=== PATIENT | male | born 1945 | race Caucasian/White ===

== ENCOUNTER 2017-05-13 10:40 | Inpatient (IN) | payer MEDICARE ==
[~2017-05-13] VITALS: Ht 182.9 cm; Wt 77.3 kg
[~2017-05-13 10:40] MED LIST: ALBU2.5V36 INH; ALBU2.5V36 NEB; ASPI81TA94 PO; ATOR40TA69 PO; AZIT500V18 IV; CEFT1VIA65 IV; COM14R INH; DOXY-179 PO; ENOX40DI8 SC; FURO40TA35 PO; INSU100V24 SUBQ; IPRA3AMP21 NEB; METH125V13 IVP; METO25TA93 PO
[2017-05-13] MEDS ORDERED: ALBUTEROL 2.5 MG/3 ML NEB NEB PRN (10:55)
[2017-05-13] MEDS ORDERED: MAGNESIUM HYDROXIDE* 30ML UDCP FT PRN (10:55)
[2017-05-13] MEDS ORDERED: BISACODYL 10 MG SUPP PR PRN (10:55)
[2017-05-13] MEDS ORDERED: INSULIN HUM LISPRO 100 UN/ML 3 ML VIAL SUBQ PRN (10:55)
--- NOTE | 2017-05-13 11:28 | Consultant Pharmacy Review ---
Asphalt Patcher Review Medication Review Do All Mecications have a Diag: No (SHOWS UNKNOWN GI PROBLEMS - CURRENTLY ON PROTONIX WITH NO DIAG.) Beers Criteria Medication 2014 Proton Pump Inhibitors: Pantoprazole (NO DIAGNOSIS AVAILABLE - CONSIDER STOPPING UPON DISCHARGE) Other General Cautions MILK OF MAG CAN DECREASE ABSORPTION OF PREDNISONE. GIVE ADEQUATE SPACING OF THESE MEDICATIONS TO AVOID THIS EFFECT. PREDNISONE CAN ALTER BLOOD GLUCOSE - MONITOR CLOSELY WHILE TAKING CORTICOSTEROIDS. Lexicomp Interaction Analysis A = No known interaction C = Monitor therapy X = Avoid combination B = No action needed D = Consider therapy modification Drugs in this analysis: Albuterol; Bisacodyl; HumaLOG; Lovenox; Milk of Magnesia [OTC]; PredniSONE; Protonix * Drug-Drug Interactions D Bisacodyl Milk of Magnesia [OTC] (Antacids) D Milk of Magnesia [OTC] (Antacids) PredniSONE (Corticosteroids (Oral)) C HumaLOG (Antidiabetic Agents) PredniSONE (Hyperglycemia-Associated Agents) B Albuterol (Beta2-Agonists) PredniSONE (Corticosteroids) Pneumococcal Vaccine HX Pneumo Vac ([id number]): No (unsure ) HX Pneumo Vac (Pneumovax): No (unsure ) Notified? Notified?: No BROOKE WILSON May 13, 2017 11:28
[2017-05-13 11:33] VITALS: Ht 182.9 cm; Wt 77.3 kg
[2017-05-13 11:56] VITALS: BP 140/83
--- NOTE | 2017-05-13 14:09 | Medical Nutrition Therapy ---
Nutrition Anthropometrics Height (Inches): 72.00 Height (Calculated Centimeters: 182.520901 Weight (Pounds): 170 Weight (Calculated Kilograms): 77.338 BMI Calculated: 24.68 Mario Alberto Nutrition Score: Mario Alberto Nutrition Risk Score: Dietary Referral Nutrition Risk Factors: Unplanned Loss >10lbs Nutrition Risk Comment: Physical Findings Physical Appearance: WNL Skin Appearance Skin Appearance: Edema Edema Location Modifier: Both Edema Location: Ankle Type of Edema: Degree of Edema: Gastrointestinal Symptoms GI Symtoms: Appetite Changes Tube Present: Bowel Sounds: Recent Bowel Pattern: Stool Characteristics: Nutrition/Food History Decreased Appetite Fair Nutritional Diagnosis Nutritional Risk Acuity 3: COPD Unstable Past Medical History: COPD, type 2 diabetes, CAD, severe aortic stenosis, polycythemia Nutritional Acuity: 3-Mild Nutrition Diagnosis: Inadequate Food Intake Nutrition Etiology: Physiological Causes Nutrition Problem/Etiology/Sym: Inadequate Oral Intake related to lack of teeth/dentures AEB reports of weight loss and insufficient intake of from diet when compared to requirements Energy Requirement: 2340 ([place]-St Jeor: Actual BW X 1.5) Protein Requirement: 77 (Actual BW Kg X 1.0) Fluid Requirement: 2340 Diet Type: Dysphagia Stage 3 Nutrition Intervention: Cont diet as ordered Additional Diet Restrictions: PT HAS NO TEETH.- PROVIDE SOFT, [id number] Diet Comment To RSA: PUT PROTEIN POWDER IN APPROPRIATE FOODS, OFFER NUTR SUPPLMENT Nutrition Monitoring & Eval RD Patient Assessment Time: [address] Assessment Type: RD Assessment Patient Nutrition Acuity: 3-Mild Follow Up Date: May 16, 2017 Nutritional Comment: Pt originally admitted 05/04/17 for respiratory failure and intubated in ICU. Pt extubated 05/11/17 and transferred to [facility] 05/13/17. ST eval indicated no dysphagia, however pt without or teeth/dentures. Receiving Dsyphagia 3 (soft, moist, easy to chew/swallow foods). Alb 2.8, BNP 635, Glu 85. SSI Lispro. Will monitor and encourage intake. STEVE STEVENS May 13, 2017 14:09
[2017-05-13 16:45] VITALS: BP 160/93
[2017-05-14 08:10] VITALS: BP 178/101
[2017-05-14 08:24] VITALS: BP 130/76
[2017-05-14] MEDS: predniSONE 20 MG TAB PO SCH (08:38)
[2017-05-14] MEDS: PANTOPRAZOLE SOD 40 MG TABEC PO SCH (08:38)
[2017-05-14] MEDS: ENOXAPARIN 40 MG/0.4ML SYR SC SCH (08:39)
[2017-05-14 16:45] VITALS: BP 183/92
[2017-05-15 07:40] VITALS: BP 140/80
[2017-05-15] MEDS: predniSONE 20 MG TAB PO SCH (08:41)
[2017-05-15] MEDS: PANTOPRAZOLE SOD 40 MG TABEC PO SCH (08:41)
[2017-05-15] MEDS: ENOXAPARIN 40 MG/0.4ML SYR SC SCH (08:42)
[2017-05-15 16:10] VITALS: BP 119/66
--- NOTE | 2017-05-15 16:41 | PT ECF NOTE ---
Type of Note: Initial Note Primary Medical Diagnosis: s/p pneumonia with acute respiratory failure and intubation; COPD, severe aortic stenosis, EF of 55% Physical Therapy Evaluation Date: 05/13/17 SUBJECTIVE: Prior Hospitalization: 05/04/17 - 05/13/17 Prior Level of Function: Pt was indep with all personal and community mobility. 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 Home Accessibility: One large step onto pickup tailgate to access [facility]. Equipment Owned: None Medical Complications/Past Medical History: Pt previously hospitalized for aortic stenosis and transferred to [place] for follow up, however, pt left [place] , stating that he would follow up with his primary care physician in [facility]. Psychosocial Support: Unknown, pt reports friends that assist. Pain Scale (0-10): None reported at time of eval OBJECTIVE: Strength: B) LE's 4-/5 overall; pt fatigues easily ROM: (please note any abnormalities) No limitations present Sensation: (please note any abnormalities) Denies paresthesias Other Neuro findings: Confusion and unclear thinking at times, as well as poor safety awareness skills and difficulty following instructions. Bed Mobility: Not observed at eval; Pt was modified indep with this on Medical unit Assistive device: Bed rail Transfers: Minimum assistance, Verbal cues, SBA, CGA Assistive Device: Front wheeled walker, Gait belt Gait: Verbal cues, SBA, CGA Assistive device: Front wheeled walker Stairs: Not yet attempted Assistive device: Timed Up and Go (>12 seconds indicated increased risk for falls): Not evaluated at time of eval, as pt is not following serial instructions, but does adequately with [id number] cues. 10 meter walk test (0.6m/second cannot function independently): n/a Other Objective Measures: n/a ASSESSMENT: Pt demos generalized weakness and difficulty with motor planning, as well as decreased safety awareness with basic ADL's, following prolonged intubation. Due to pt's living arrangements, pt will need to be highly indep with only a SPC or no assistive device. Pt will also need to be able to safely complete a high step up onto tailgate of pickup to access his camper, as he currently does not have portable steps for this. Problem List/Current Limitations: Decreased activity willam, Decreased strength , Decreased coordination, Decreased balance, Generalized weakness, Poor safety awareness, Decreased problem solving Short Term Goals: 1. Pt to be able to ambulate 200' with least restrictive device and no loss of balance with Modified indep 2. Pt to to up/down 4 steps with single rail and modified indep. 3. Pt to willam large step up onto adjustable mat table with CGA/SBA and rail for leverage to simulate entry to camper. Equine Pharmacology Technician Goals: Pt to discharge to least restrictive environment with adequate safety Patient Goals: Return to his prior living arrangement Rehabilitation Prognosis: Good/Fair Barriers for Discharge: Pt resides alone is a fairly challenging setting with a large step into pickup to access his camper. PLAN: The patient will benefit from skilled physical therapy services 5 times per week for 2 weeks including: Therapeutic Activities Transfer Training, Gait Training, Stair Training, ADL's, Safety Training, Bed Mobility Thank you for this referral. If you have any questions, concerns, or comments about this report or plan, please contact me at . h. Radha Alberto, PT, MPT MTDD
[2017-05-16 07:50] VITALS: BP 169/78
[2017-05-16] MEDS: ENOXAPARIN 40 MG/0.4ML SYR SC SCH (08:43)
[2017-05-16] MEDS: PANTOPRAZOLE SOD 40 MG TABEC PO SCH (08:43)
[2017-05-16] MEDS: predniSONE 20 MG TAB PO SCH (08:43)
--- NOTE | 2017-05-16 14:34 | Medical Nutrition Therapy ---
Nutrition Anthropometrics Height (Inches): 72.00 Height (Calculated Centimeters: 182.020155 Weight (Pounds): 170 Weight (Calculated Kilograms): 77.338 BMI Calculated: 24.68 Mario Alberto Nutrition Score: Adequate Mario Alberto Nutrition Risk Score: 17 Dietary Referral Nutrition Risk Factors: Unplanned Loss >10lbs Nutrition Risk Comment: Physical Findings Physical Appearance: WNL Skin Appearance Skin Appearance: Edema Edema Location Modifier: Both Edema Location: Ankle Type of Edema: Degree of Edema: 2+ Gastrointestinal Symptoms GI Symtoms: Appetite Changes Tube Present: Bowel Sounds: Recent Bowel Pattern: Stool Characteristics: Nutritional Diagnosis Nutritional Risk Acuity 3: COPD Unstable Past Medical History: COPD, type 2 diabetes, CAD, severe aortic stenosis, polycythemia Nutritional Acuity: 3-Mild Nutrition Diagnosis: Inadequate Food Intake Nutrition Etiology: Physiological Causes Nutrition Problem/Etiology/Sym: Inadequate Oral Intake related to lack of teeth/dentures AEB reports of weight loss and insufficient intake of from diet when compared to requirements Energy Requirement: 2340 ([place]-St Jeor: Actual BW X 1.5) Protein Requirement: 77 (Actual BW Kg X 1.0) Fluid Requirement: 2340 Diet Type: Dysphagia Stage 3 Nutrition Intervention: Cont diet as ordered Food Likes: lana ensure Additional Diet Restrictions: PT HAS NO TEETH.- PROVIDE SOFT, [id number] Diet Comment To RSA: PUT PROTEIN POWDER IN APPROPRIATE FOODS, OFFER NUTR SUPPLMENT Nutrition Monitoring & Eval Nutrition Goals: Eat 75-100% Meal RD Patient Assessment Time: [address] Assessment Type: RD Re-Assessment Patient Nutrition Acuity: 3-Mild Follow Up Date: May 16, 2017 Nutritional Comment: Pt originally admitted 05/04/17 for respiratory failure and intubated in ICU. Pt extubated 05/11/17 and transferred to [facility] 05/13/17. ST eval indicated no dysphagia, however pt without or teeth/dentures. Receiving Dsyphagia 3 (soft, moist, easy to chew/swallow foods). Alb 2.8, BNP 635, Glu 85. SSI Lispro. Will monitor and encourage intake. 05/16 Glu 109. Pt consuming 100% of Dsyphagia 3 diet. Monitor labs, intake, etc. STEVE STEVENS May 16, 2017 14:34
--- NOTE | 2017-05-16 15:38 | OT ECF NOTE ---
Type of Note: Initial Note Primary Medical Diagnosis: s/p pneumonia with acute respiratory failure and intubation; COPD, severe aortic stenosis, EF of 55% Occupational Therapy Evaluation Date: 05/16/17 SUBJECTIVE: Prior Hospitalization: H 05/04/17 thru 05/13/17 Prior Level of Function: Independent with all ADLs/IADLs Prior Living Status: Alone, Pt resides in a camper in the bed of his truck. Utilizes truck stops for bathing. Community Services: No known needs Home Accessibility: One step into home Equipment Owned: None Medical Complications/Past Medical History: Pt previously hospitalized for aortic stenosis and transferred to [place] for follow up, however, pt left [place] , stating that he would follow up with his primary care physician in [facility]. Psychosocial Support: Unknown, pt reports friends that assist as needed Pain Scale (0-10): None reported at time of evaluation. OBJECTIVE: Strength: MMT: Right Left Shoulder Flexion WFL WFL Elbow Flexion WFL WFL Wrist Extension WFL WFL Store Loss Prevention Manager WFL WFL (5= normal, 4= good, 3= fair, 2= poor, 1= trace) ROM: Both upper extremities, WFL Sensation: Intact, No concerns Functional Transfer: Assistive Device: Rolling walker Transfer Ability: Independent/SBA with v/c's due to decreased safety awareness. Education for use of w/c brakes. ADL: Upper body dressing: Assistive device: Upper body dressing ability: Independent Lower body dressing: Assistive device: Seated Lower body dressing ability: Independent Toileting: Assistive device: Toilet seat with grab bars Toileting ability: Modified Ind/AE Grooming/hygiene: Assistive device: Grooming ability: N/T Bathing: Assistive device: Bathing ability: N/T Standardized Assessment: James Index of Activities of Daily Livin/20 at initial evaluation. Pt able to complete ADLs (I)ly/SBA but presents with fatigue and decreased strength. ASSESSMENT: Vasile presents to [facility] with decreased activity tolerance for engagement in ADLs. He will benefit from skilled OT services to ensure safety and strength for optimize ADL engagement. Problem List/Current Limitations: Generalized weakness Short Term Goals: 1. Pt will be provided with UB HEP. 2. Pt will have knowledge of appropriate AE. Visual Lead Goals: Return to prior living status. Patient Goals: Pt reports desire to discharge home at current level of function with no concerns. Rehabilitation Prognosis: Good Barriers to Discharge: Discharge arrangements PLAN: The patient will benefit from skilled occupational therapy services 5 times per week for 2 weeks including: Thank you for this referral. If you have any questions, concerns, or comments about this report or plan, please contact me at . Shruti Lomeli MS, OTR/L Occupational Therapist CHARLENE
[2017-05-16 18:20] VITALS: BP 155/78
[2017-05-17 08:00] VITALS: BP 147/78
--- NOTE | 2017-05-17 08:39 | Medical Nutrition Therapy ---
Nutrition Monitoring & Eval RD Patient Assessment Time: [address] Assessment Type: RD Re-Assessment Patient Nutrition Acuity: 3-Mild Follow Up Date: May 23, 2017 Nutritional Comment: Pt originally admitted 05/04/17 for respiratory failure and intubated in ICU. Pt extubated 05/11/17 and transferred to [facility] 05/13/17. ST eval indicated no dysphagia, however pt without or teeth/dentures. Receiving Dsyphagia 3 (soft, moist, easy to chew/swallow foods). Alb 2.8, BNP 635, Glu 85. SSI Lispro. Will monitor and encourage intake. 05/16 Glu 109. Pt consuming 100% of Dsyphagia 3 diet. Monitor labs, intake, etc. NANCY ABAD May 17, 2017 08:39
[2017-05-17] MEDS: ENOXAPARIN 40 MG/0.4ML SYR SC SCH (09:00)
[2017-05-17] MEDS: PANTOPRAZOLE SOD 40 MG TABEC PO SCH (09:01)
[2017-05-17] MEDS: predniSONE 20 MG TAB PO SCH (09:01)
--- NOTE | 2017-05-17 10:24 | OT ECF NOTE ---
Type of Note: Discharge Note Primary Medical Diagnosis: s/p pneumonia with acute respiratory failure and intubation; COPD, severe aortic stenosis, EF of 55% Occupational Therapy Evaluation Date: 05/16/17 SUBJECTIVE: Prior Hospitalization: H 05/04/17 thru 05/13/17 Prior Level of Function: Independent with all ADLs/IADLs Prior Living Status: Alone, Pt resides in a camper in the bed of his truck. Utilizes truck stops for bathing. Community Services: No known needs Home Accessibility: One step into home Equipment Owned: None-Declined recommendations for walker/cane for community mobility. Medical Complications/Past Medical History: Pt previously hospitalized for aortic stenosis and transferred to [place] for follow up, however, pt left [place] , stating that he would follow up with his primary care physician in [facility]. Psychosocial Support: Unknown, pt reports friends that assist as needed Pain Scale (0-10): None reported at time of evaluation. OBJECTIVE: Strength: MMT: Right Left Shoulder Flexion WFL WFL Elbow Flexion WFL WFL Wrist Extension WFL WFL Parking Lot Chauffeur WFL WFL (5= normal, 4= good, 3= fair, 2= poor, 1= trace) ROM: Both upper extremities, WFL Sensation: Intact, No concerns Functional Transfer: Assistive Device: Rolling walker Transfer Ability: Independent ADL: Upper body dressing: Assistive device: Upper body dressing ability: Independent Lower body dressing: Assistive device: Seated Lower body dressing ability: Independent Toileting: Assistive device: Toilet seat with grab bars Toileting ability: Modified Ind/AE Grooming/hygiene: Assistive device: Grooming ability: Pt refusing ADLs with OT at time of discharge. Reports no concerns with discharge plan. Per nursing, pt has (I)ly been completing toileting and grooming. Bathing: Assistive device: Bathing ability: Pt refusing shower Standardized Assessment: James Index of Activities of Daily Livin/20 at initial evaluation. 20/ 20 at discharge date. ASSESSMENT: [facility] activity tolerance for engagement in ADLs. He is anxious to return to his prior living setting and presents with no questions or concerns for OT at time of discharge. Problem List/Current Limitations: Generalized weakness Short Term Goals: 1. Pt will be provided with UB HEP. GOAL MET. 2. Pt will have knowledge of appropriate AE. GOAL MET. Biology Specialist Goals: Return to prior living status. Patient Goals: Pt reports desire to discharge home at current level of function with no concerns. Rehabilitation Prognosis: Good Barriers to Discharge: Discharge arrangements PLAN: The patient will benefit from skilled occupational therapy services 5 times per week for 2 weeks including: Thank you for this referral. If you have any questions, concerns, or comments about this report or plan, please contact me at . Shruti Lomeli MS, OTR/L Occupational Therapist [place]
--- NOTE | 2017-05-17 13:22 | Hospitalist Depart ---
Discharge Summary Reason for Hosp/Final Diag: (1) Generalized weakness Status: Acute Hospital Course & Plan: The patient was transferred to [facility] for ongoing rehabilitation after an inpatient stay for pneumonia as noted below. (2) Community acquired pneumonia Status: Acute Hospital Course & Plan: The patient was diagnosed with pneumonia one week prior to admission to the medical floor and reportedly completed a full course of doxycycline. His chest x-ray revealed a worsening infiltrate on the right. He was treated empirically with Primaxin and levofloxacin. His cultures were negative. Antibiotics were discontinued 05/10. He was transferred to [facility] for ongoing rehabilitation. (3) Hyperglycemia, drug-induced Hospital Course & Plan: The patient had some elevated blood sugars while on ECF due to prednisone. He only required 2u of regular insulin during his entire stay. His prednisone will be tapered. He will not be discharge on treatment for his elevated blood sugar. (4) Acute respiratory failure Hospital Course & Plan: The patient was intubated in the emergency department. He was successfully extubated 05/10/17 and eventually transferred to [facility]. (5) Sepsis Status: Resolved Hospital Course & Plan: He did have an elevated WBC, lactic acidosis, tachycardia, and mild hypotension on presentation. He required treatment with IV fluids and norepinephrine while on the medical floor. His sepsis resolved. (6) Severe aortic stenosis Hospital Course & Plan: He had been transferred to the [facility] on a previous admission for treatment of his severe , but he apparently signed out AMA before they were able to do any repair. He states he did not wish to have his aortic valve repaired/replaced at that time and wished to travel to [place], [place] to see "his doctor" to discuss the procedure. (7) Acute systolic heart failure Hospital Course & Plan: He presented to the medical floor with an elevated BNP and bilateral pleural effusions. An echocardiogram from 12/2016 showed an ejection fraction of 55% with severe aortic stenosis. A repeat echo during his inpatient stay on medical floor showed a decrease to 37%. He had severe aortic stenosis as well. (8) Acute VT Hospital Course & Plan: He had an elevated troponin and his initial EKG had ischemic changes on the medical floor. His troponin trended back down. (9) COPD exacerbation Status: Acute Hospital Course & Plan: He was treated with nebulizers and IV steroids. He was then transitioned to prednisone. He will continue a prednisone taper after discharge. (10) Abnormal chest CT Hospital Course & Plan: He was noted to have enlarged lymph nodes. Follow up CT scan was recommended. Departure Weight (Pounds): 170 Weight (Ounces): 8.0 Condition: Improved Discharge: Home, Self Care Time Spent: < 30 min Discharge Instructions Home Meds Active Scripts Omeprazole (OMEPRAZOLE) 20 Mg Tablet.dr, 20 MG PO QDAY, #30 TAB Prov:CATARINO THOMAS MD 05/17/17 Prednisone (PREDNISONE) 20 Mg Tablet, 0 PO DIRECTED, #9 TAB 30mg po qd X 3 d, then 20mg po qd X 3d, then 10mg po qd X 3 days, then stop. Prov:CATARINO THOMAS MD 05/17/17 Reported Medications Albuterol Sulfate 0.083% (ALBUTEROL SULFATE 0.083%) 2.5 Mg/3 Ml Vial.neb, 2.5 MG INH Q4H Y for WHEEZING, INH 05/10/17 Atorvastatin Calcium (ATORVASTATIN CALCIUM) 40 Mg Tablet, 1 TAB PO QDAY, TAB 05/10/17 Furosemide (LASIX) 40 Mg Tablet, 1 TAB PO DAILY, TAB 05/10/17 Metoprolol Tartrate (METOPROLOL TARTRATE) 25 Mg Tablet, 25 MG PO BID for BP/HR control, TAB 05/10/17 Aspirin (ASPIRIN) 81 Mg Tab.chew, 81 MG PO QDAY, TAB.CHEW 05/10/17 Follow up Referrals: Other Referral - In Two Weeks @ [facility] Special Instructions: The patient is to follow up with his primary care provide in the next 1-2 weeks. He is to continue a dysphagia diet. Venous Thromboembolism VTE Risk Physician Assess for VTE Risk: Yes Patient's VTE Risk: Low VTE Diagnostic Test 2 Days Prior to Admit: No Antithrombotics Is Pt On Any Antithrombotics?: Yes Problem Qualifiers (1) Sepsis: Sepsis type: Streptococcus group B, in Qualified Codes: P36.0 - Sepsis of due to Streptococcus, group b CATARINO THOMAS MD May 17, 2017 13:22
[2017-05-17] MEDS ORDERED: PRED20TA6 PO (13:26)
[2017-05-17] MEDS ORDERED: OMEP-137 PO (13:27)
[2017-05-17] MEDS ORDERED: PNEUMOC 13-VAL CONJ-DIP CRM/PF 0.5 ML SYR IM ONLY ONE (13:40)
--- NOTE | 2017-05-17 15:29 | PT ECF NOTE ---
Type of Note: Discharge Summary Primary Medical Diagnosis: s/p pneumonia with acute respiratory failure and intubation; COPD, severe aortic stenosis, EF of 55% Physical Therapy Discharge Date: 05/17/17 SUBJECTIVE: Prior Hospitalization: 05/04/17 - 05/13/17 Prior Level of Function: Pt was indep with all personal and community mobility. 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 Equipment Owned: None Medical Complications/Past Medical History: Pt previously hospitalized for aortic stenosis and transferred to [place] for follow up, however, pt left [place] , stating that he would follow up with his primary care physician in [facility]. Psychosocial Support: Unknown, pt reports friends that assist. Pain Scale (0-10): None reported OBJECTIVE: Strength: B) LE's 4-/5 overall; pt fatigues easily ROM:No limitations present Sensation: Denies paresthesias Other Neuro findings: Confusion and unclear thinking at times, as well as poor safety awareness skills and difficulty following instructions. Bed Mobility: Not observed at [facility] per nursing report Transfers: Darline with no AD Gait: Darline x250' with no AD Stairs: Darline x4 stairs with railing ASSESSMENT: Pt has met all PT goals and is likely at or near baseline level of functional mobility. Pt demonstrated the ability to safely rise from a kneeling position as well as transfer onto raised mat table onto knees to simulate entry into pt's truck with camper. Pt completed 4 stairs with R) railing and Darline. All mobility completed with no AD. No further PT visits planned, D/C skilled PT at this time. Problem List/Current Limitations: Decreased activity willam Short Term Goals: (all goals met) 1. Pt to be able to ambulate 200' with least restrictive device and no loss of balance with Modified indep 2. Pt to to up/down 4 steps with single rail and modified indep. 3. Pt to willam large step up onto adjustable mat table with CGA/SBA and rail for leverage to simulate entry to camper. Penitentiary Goals: Pt to discharge to least restrictive environment with adequate safety (goal met) Patient Goals: Return to his prior living arrangement (goal met) PLAN: The patient will discharge with his friend who will take him to his truck and camper. Thank you for this referral. If you have any questions, concerns, or comments about this report or plan, please contact me at . Mirian Lam, PT, DPT MTDD
--- NOTE | 2017-05-25 14:09 | HISTORY AND PHYSICAL ---
DATE OF ADMISSION: May 13, 2017 Reason for Hosp/Final Diag: (1) Community acquired pneumonia Status: Acute Hospital Course & Plan: He was diagnosed with pneumonia one week prior to admission and reportedly completed a full course of doxycycline. His chest x- ray revealed a worsening infiltrate on the right. We treated him empirically with Primaxin and levofloxacin. His cultures have been negative. Antibiotics were discontinued 05/10. (2) Acute respiratory failure Hospital Course & Plan: He was intubated in the emergency department. He was successfully extubated 05/10/17. (3) Sepsis Status: Resolved Hospital Course & Plan: He did have an elevated WBC, lactic acidosis, tachycardia, and mild hypotension. He required treatment with IV fluids and norepinephrine. His sepsis has now resolved. (4) Severe aortic stenosis Hospital Course & Plan: We transferred him to the [facility] on a previous admission for this, but he apparently signed out AMA before they were able to do any repair. He states he did not wish to have his aortic valve repaired/ replaced at that time and wished to travel to [place], [place] to see "his doctor" to discuss the procedure. (5) Acute systolic heart failure Hospital Course & Plan: He presented with an elevated BNP and bilateral pleural effusions. An echocardiogram from 12/2016 showed an ejection fraction of 55% with severe aortic stenosis. A repeat echo has shown a decrease to 37%. He has severe aortic stenosis as well. Will need to be judicious with diuresis. (6) Acute RI Hospital Course & Plan: He had an elevated troponin and his initial EKG had ischemic changes. His troponin has trended back down. (7) COPD exacerbation Status: Acute Hospital Course & Plan: He remains on nebulizers and IV steroids. He has been transitioned to prednisone. (8) Abnormal chest CT Hospital Course & Plan: He was noted to have enlarged lymph nodes. Follow up CT scan is recommended. Departure Latest Vital Signs Vital Signs 05/10/17 05/13/17 05/13/17 05/13/17 05/13/17 09:30 07:05 07:38 07:40 09:21 Temp 97.8 Pulse 78 Resp 16 B/P (MAP) 168/93 (118) Pulse Ox 94 O2 Delivery High-Flow Nasal Cannula O2 Flow Rate 3.0 FiO2 35.0 Weight (Pounds): 172 Weight (Ounces): 1.0 Result Diagram: 05/13/17 0508 05/13/17507 Condition: Improved Discharge: [facility] PT/OT Follow Up For: PT Evaluation and Treat, OT Evaluation and Treat Discharge Instructions Home Meds Reported Medications Albuterol Sulfate 0.083% (ALBUTEROL SULFATE 0.083%) 2.5 Mg/3 Ml Vial.neb, 2.5 MG INH Q4H Y for WHEEZING, INH 05/10/17 Atorvastatin Calcium (ATORVASTATIN CALCIUM) 40 Mg Tablet, 1 TAB PO QDAY, TAB 05/10/17 Furosemide (LASIX) 40 Mg Tablet, 1 TAB PO DAILY, TAB 05/10/17 Metoprolol Tartrate (METOPROLOL TARTRATE) 25 Mg Tablet, 12.5 MG PO BID for BP/ HR control, TAB 05/10/17 Aspirin (ASPIRIN) 81 Mg Tab.chew, 81 MG PO QDAY, TAB.CHEW 05/10/17 Diet: Regular Activity: As Tolerated Special Instructions: Venous Thromboembolism Antithrombotics Is Pt On Any Antithrombotics?: No Problem Qualifiers (1) Community acquired pneumonia: Laterality: right Lung location: upper lobe of lung Qualified Codes: J18.1 - Lobar pneumonia, unspecified organism (2) Acute respiratory failure: Respiratory failure complication: hypercapnia Qualified Codes: J96.02 - Acute respiratory failure with hypercapnia RUSLAN VILLARREAL DO May 13, 2017 09:35 <Electronically signed by RUSLAN VILLARREAL DO> D/ 4 4 4 [facility] H&P ADDENDUM The above issues are resolving. Patient requires nursing home care and/or skilled rehabilitation. Patient is ready for transfer to Extended Care. Any change in condition is described below. MTDD
== END 2017-05-17 14:15 | disposition home or self-care (01) | DRG 190 ==
LOC: ECF 10:40
PROVIDERS: ADMIT Family Medicine; ATTEND Family Medicine
DX: J44.1 Chronic obstructive pulmonary disease with (acute) exacerbation (principal); I50.23 Acute on chronic systolic (congestive) heart failure; I21.19 ST elevation (STEMI) myocardial infarction involving other coronary artery of inferior wall; R53.1 Weakness; I11.0 Hypertensive heart disease with heart failure; I35.0 Nonrheumatic aortic (valve) stenosis; T38.0X5A Adverse effect of glucocorticoids and synthetic analogues, initial encounter; R73.9 Hyperglycemia, unspecified; Y92.230 Patient room in hospital as the place of occurrence of the external cause; Z87.891 Personal history of nicotine dependence; Z23 Encounter for immunization
CPT/HCPCS: 36416; 82948; 90670; 97161; 97165; J1650; J7512

== ENCOUNTER 2017-05-17 07:13 | Outpatient (RCR) | payer MEDICARE ==
[2017-05-13 11:33] VITALS: BMI 24.7
[2017-05-17] MEDS ORDERED: PRED20TA6 PO (13:26)
[2017-05-17] MEDS ORDERED: OMEP-137 PO (13:27)
--- NOTE | 2017-05-25 12:58 | Transitional Care Management ---
Assessment Visit Type: Telephone Visit Spoke with: Vasile Cardiac: WNL Respiratory: WNL Except Respiratory Comment: 05/18 He gets sob with activity, and when he went to [place] to get his camper. He has been smoking, and is short of breath with each cigarette. I encouraged him to stop smoking. GI: Nutrition: WNL Constipation?: No : WNL Musculoskeletal, Exercise: WNL Except Musculoskeletal, Excercise Com: 05/18 He does not tollerate activity well, I encouraged him to take frequent rest periods. Mobility/Falls: WNL Integumentary: WNL Feeling of Well Being: WNL Except Feeling of Well Being Comment: 05/18 "I can't do everything I am used to doing." Socialization: WNL Socialization Comment: 05/18 He lives in a small camper, and tries to stay busy with errands during the day. Pain/Management: WNL Scheduled Follow-Up with Provi: No (05/18 Has not made follow up appts.) Primary Care Provider Visits: No Following Discharge Instructio: No (05/18 Has not filled his prescriptions yet. 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 we went over meds, daily sts and the neeed for no salt. he states "I eat alot of salt" we discussed salt substitute. The need to get a PVP. He thinks he will see the woman he saw before admission. 05/18 He gets short of breath with activity and cigarettes. Has not filled his prescriptions yet. I stressed the importance of finishing the prednisone course. He does not agree to a home visit at this time, because he will have to move his camper today, and he is not sure where it will go. MARLENE NASCIMENTO May 25, 2017 12:58
--- NOTE | 2017-05-25 13:07 | Transitional Care Management ---
Assessment Visit Type: Telephone Visit Spoke with: Vasile Cardiac: WNNeftali Respiratory: WNL Except Respiratory Comment: 05/18 He gets sob with activity, and when he went to [place] to get his camper. He has been smoking, and is short of breath with each cigarette. I encouraged him to stop smoking. 05/20 SOB continues with activity and smoking. He is cutting back on cigarettes, and is using tobacco snuff to reduce how much he smokes. GI: Nutrition: WNL Constipation?: No : WNL Musculoskeletal, Exercise: WNL Except Musculoskeletal, Excercise Com: 05/18 He does not tollerate activity well, I encouraged him to take frequent rest periods. 05/20 Tollerating activity a little better, but still gets SOB. Mobility/Falls: WNL Integumentary: WNL Feeling of Well Being: WNL Except Feeling of Well Being Comment: 05/18 "I can't do everything I am used to doing." Socialization: WNL Socialization Comment: 05/18 He lives in a small camper, and tries to stay busy with errands during the day. 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 we went over meds, daily sts and the [place] for no salt. he states "I eat alot of salt" we discussed salt substitute. The need to get a PVP. He thinks he will see the woman he saw before admission. 05/18 He gets short of breath with activity and cigarettes. Has not filled his prescriptions yet. I stressed the importance of finishing the prednisone course. He does not agree to a home visit at this time, because he will have to move his camper today, and he is not sure where it will go. 05/20 He is feeling a little better, tollerating activity a little better. Still smoking, but less, supplimenting with smokless tobacco. He is vague about where he is living in his camper. Has not filled prescriptions yet. 05/25 Unable to contact or leave message. MARLENE NASCIMENTO May 25, 2017 13:07
--- NOTE | 2017-05-29 15:53 | Transitional Care Management ---
Assessment Visit Type: Telephone Visit Spoke with: Vasile Cardiac: WNL Respiratory: WNL Except Respiratory Comment: 05/18 He gets sob with activity, and when he went to [place] to get his camper. He has been smoking, and is short of breath with each cigarette. I encouraged him to stop smoking. 05/20 SOB continues with activity and smoking. He is cutting back on cigarettes, and is using tobacco snuff to reduce how much he smokes. 05/29 has quit smoking, he denies SOB. he is staying with his brother in [facility]. GI: Nutrition: WNL Constipation?: No : WNL Musculoskeletal, Exercise: WNL Except Musculoskeletal, Excercise Com: 05/18 He does not tollerate activity well, I encouraged him to take frequent rest periods. 05/20 Tollerating activity a little better, but still gets SOB. 05/29 Tollerating activity well at the lower elevation of his brother's home. 3300[place] elevation. Mobility/Falls: WNL Integumentary: WNL Feeling of Well Being: WNL Except Feeling of Well Being Comment: 05/18 "I can't do everything I am used to doing." 05/29 "Feeling much better now that I am out of [place]." Socialization: WNL Socialization Comment: 05/18 He lives in a small camper, and tries to stay busy with errands during the day. 05/29 Staying with his brother in [place]. 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 we went over meds, daily sts and the neeed for no salt. he states "I eat alot of salt" we discussed salt substitute. The need to get a PVP. He thinks he will see the woman he saw before admission. 05/18 He gets short of breath with activity and cigarettes. Has not filled his prescriptions yet. I stressed the importance of finishing the prednisone course. He does not agree to a home visit at this time, because he will have to move his camper today, and he is not sure where it will go. 05/20 He is feeling a little better, tollerating activity a little better. Still smoking, but less, supplimenting with smokless tobacco. He is vague about where he is living in his camper. Has not filled prescriptions yet. 05/25 Unable to contact or leave message. 05/29 He has relocated to [place] ([place]) and feels much better, he has stopped smoking and is tollerating activity well. We discussed the advantages of lower elevation, the need to take meds as prescribed. He just got over the flu. MARLENE NASCIMENTO May 29, 2017 15:53
== END 2017-06-14 16:01 | disposition home or self-care (01) ==
LOC: TCM 07:13
PROVIDERS: ATTEND Nurse Practitioner
DX: Z02.9 Encounter for administrative examinations, unspecified (principal)